=== PATIENT | male | born 1975 | race American Indian/Alaskan Native ===

== ENCOUNTER 2021-02-08 21:56 | Emergency (ER) | payer OTHER ==
[~2021-02-08] VITALS: Ht 175.3 cm; Wt 107.0 kg
[2021-02-08 22:06] VITALS: BP_SYST 147
[2021-02-08] MEDS: NACL 0.9% 1,000 ML IV ONE ×2 (22:34→23:21)
[2021-02-08] MEDS: MORPHINE 4 MG INJ. 4 MG/ML VIAL IVP ONE (22:36)
[2021-02-08] MEDS: METOCLOPRAMIDE HCL 10 MG/2 ML VIAL IVP ONE (22:36)
[2021-02-08 22:43] LABS: BASOPHILS # (AUTO) 0.1 K/uL (0.0-0.2); BASOPHILS % (AUTO) 1.2 % (0.0-2.0); EOSINOPHILS # (AUTO) 0.1 K/uL (0.0-0.4); EOSINOPHILS % (AUTO) 1.5 % (0.0-4.0); HEMATOCRIT 44.6 % (36-54); HEMOGLOBIN 14.8 g/dL (14.0-18.0); LYMPHOCYTES # (AUTO) 1.4 K/uL (1.0-5.5); LYMPHOCYTES % (AUTO) 22.4 % (20.5-51.5); MEAN CORPUSCULAR HEMOGLOBIN 27 pg (27-31); MEAN CORPUSCULAR HGB CONC 33 % (32-36); MEAN CORPUSCULAR VOLUME 82 fL (79.0-98.0); MONOCYTES # (AUTO) 0.4 K/uL (0.0-1.0); MONOCYTES % (AUTO) 5.9 % (1.7-9.3); NEUTROPHILS # (AUTO) 4.4 K/uL (1.8-7.7); PLATELET COUNT (AUTO) 326 K/uL (130-430); RED BLOOD CELL COUNT(AUTO) 5.42 MIL/uL (4.2-6.2); RED CELL DISTRIBUTION WIDTH 14.3 % (9.0-15.0); WHITE BLOOD COUNT (AUTO) 6.3 K/uL (4.8-10.8)
[2021-02-08 22:50] LABS: CREATININE 1.28 mg/dL (0.55-1.30); POTASSIUM 4.1 mmol/L (3.5-5.1)
[2021-02-08 23:01] LABS: ALBUMIN 2.8 g/dL (3.4-4.8); TOTAL BILIRUBIN 0.7 mg/dL (0.0-1.0)
[2021-02-08] MEDS ORDERED: HYDROmorphone 1 INJ. 1 MG/ML CARTRIDGE IVP ONE (23:15)
[2021-02-08 23:17] LABS: BILIRUBIN,URINE 2+ (NEGATIVE); BLOOD, URINE 2+ (NEGATIVE); CLARITY/URINE SL CLOUDY (CLEAR); COLOR,URINE YELLOW (YELLOW); GLUCOSE,URINE 2+ (NEGATIVE); KETONES,URINE 1+ (NEGATIVE); LEUKOCYTE ESTERASE ,URINE NEGATIVE (NEGATIVE); NITRITE, URINE NEGATIVE (NEGATIVE); PROTEIN URINE 3+ (NEGATIVE)
[2021-02-08] MEDS: PROCHLORPERAZINE EDISYLATE 10 MG/2 ML VIAL IVP ONE (23:20)
[2021-02-08 23:38] LABS: BACTERIA,URINE FEW /HPF (None Seen); WBC,URINE 0-3 /HPF (0-3)
[2021-02-08] MEDS ORDERED: fentaNYL CITRATE/PF 100 MCG/2 ML AMP ONE (23:39)
[2021-02-09] MEDS: INSULIN REGULAR, HUMAN 10 UNITS/0.1 ML INJ IVP ONE (00:23)
[2021-02-09] MEDS: fentaNYL CITRATE/PF 100 MCG/2 ML AMP IVP ONE (00:40)
[2021-02-09] MEDS: NACL 0.9% 1,000 ML IV ONE (00:44)
[2021-02-09] MEDS ORDERED: PIPERACILLIN/TAZOBACTAM 3.375 GM/VIAL (ZOSYN) IV ONE (01:38)
[2021-02-09] MEDS: PIPERACILLIN/TAZO 3.375 GM in NS 50 ML IV ONE (01:38)
[2021-02-09] MEDS ORDERED: LOPE2CAP PO (02:14)
[2021-02-09] MEDS ORDERED: ACET12.55 PO (02:14)
[2021-02-09] MEDS ORDERED: PHE25 PO (02:14)
[2021-02-09] MEDS ORDERED: INSU100V9 SQ (02:14)
[2021-02-09] MEDS ORDERED: INSU100V SQ (02:14)
[2021-02-09 02:33] VITALS: BP_SYST 154
[2021-02-09] MEDS ORDERED: AMOX-426 PO (05:08)
== END 2021-02-09 02:33 | disposition home or self-care (01) ==
LOC: SED 21:56
DX: B34.9 Viral infection, unspecified (principal); E86.0 Dehydration; E11.65 Type 2 diabetes mellitus with hyperglycemia; E11.621 Type 2 diabetes mellitus with foot ulcer; L97.509 Non-pressure chronic ulcer of other part of unspecified foot with unspecified severity; I10 Essential (primary) hypertension; E78.00 Pure hypercholesterolemia, unspecified; Z90.49 Acquired absence of other specified parts of digestive tract; Z79.899 Other long term (current) drug therapy; Z79.4 Long term (current) use of insulin; Z20.822 Contact with and (suspected) exposure to COVID-19
CPT/HCPCS: 36415; 80053; 81000; 82009; 82962; 83690; 85025; 87426; 96361 ×2; 96365; 96375 ×2; 99284; J0780; J1815; J2270; J2543; J2765; J3010; J7030 ×2; J1170